=== PATIENT | female | born 1945 | race Caucasian/White ===

== ENCOUNTER 2018-03-23 21:09 | Emergency (ER) | payer MEDICARE ==
[~2018-03-23 21:09] MED LIST: Iopamidol 370 76% 100 ML VIAL ONE
[2018-03-23] MEDS ORDERED: Fentanyl 100 MCG/2 ML VIAL ONE ×2 (21:45→22:43)
[2018-03-23] MEDS ORDERED: Ondansetron HCl/PF 4 MG/2 ML Vial ONE (21:45)
[2018-03-23] MEDS ORDERED: Famotidine In NaCl 20 mg/50 ml Premix Bag ONE (21:45)
[2018-03-23 22:04] LABS: Hemoglobin 16.9 g/dL (12.0-16.0); Mean Corpuscular HGB CONC 32.8 g/dL (32.0-36.0); Mean Corpuscular Volume 88.4 fL (78.0-98.0); Mean Platelet Volume 8.2 fL (7.4-10.4); Platelet Count 372 thou/uL (130-400); Red Blood Cell (RBC) Count 5.84 mill/uL (4.20-5.40); White Blood Cell (WBC) Count 9.7 thou/uL (4.8-10.8)
[2018-03-23 22:13] LABS: ALT (SGPT) 27 U/L (8-55); AST (SGOT) 32 U/L (5-34); Albumin 4.1 g/dL (3.4-4.8); Alkaline Phosphatase 159 U/L (40-150); Anion Gap 19 mmol/L (10-20); BUN (Urea Nitrogen) 13 mg/dL (9.8-20.1); Bilirubin, Total Less than 0.2 mg/dL (0.2-1.2); Calc. Creatinine Clearance 0 mL/min (70-130); Calcium 9.6 mg/dL (7.8-10.44); Carbon Dioxide 21 mmol/L (23-31); Chloride 100 mmol/L (98-107); Estimated GFR-MDRD 62; Globulin 3.3 g/dL (2.4-3.5); Glucose 167 mg/dL (83-110); Lipase 20 U/L (8-78); Potassium 3.6 mmol/L (3.5-5.1); Protein, Total 7.4 g/dL (6.0-8.3); Sodium 136 mmol/L (136-145)
[2018-03-23 22:24] LABS: Band 1 % (5-11); Lymphocytes 11 % (21-51); MDiff Complete? YES; Monocytes 2 % (0-10); Neutrophil 84 % (42-75); PLT Morphology Comment Appears Adequate; RBC Morphology Normal; Reactive Lymphocytes 2 % (0-10)
[2018-03-24] MEDS ORDERED: Lidocaine Viscous Sol 2% 15 ml UD Cup ONE (00:09)
[2018-03-24 00:12] LABS: Clarity Clear (Clear)
[2018-03-24 00:14] LABS: Bilirubin Small (Negative); Blood, Urine Negative (Negative); Glucose, Urine (Dipstick) Negative (Negative); Leukocyte Negative (Negative); Nitrite Negative (Negative); Protein, Urine (Dipstick) Negative (Neg-Trace); Specific Gravity, Urine 1.005 (1.002-1.036)
[2018-03-24] MEDS ORDERED: Piperacillin/Tazobactam 3.375 GM VIAL ONE (00:30)
[2018-03-24] MEDS ORDERED: Morphine 4 MG/ML Carpuject ONE (00:40)
--- NOTE | 2018-03-24 09:13 | CT ---
PRELIMINARY REPORT/[facility]/EMERGENTY AFTER-HOURS PROCEDURE CT Abdomen and Pelvis With Intravenous Contrast CLINICAL HISTORY: 73 years old, female; Pain and signs and symptoms; Vomiting; Abdominal pain; Localized; Left lower qu adrant (llq); Patient HX: Onset vomiting pain llq TECHNIQUE: Axial computed tomography images of the abdomen and pelvis with intravenous contrast. All CT scans at this facility use at least one of these dose optimization techniques: automated exposure control; mA and/or kV adjustment per patient size (includes targeted exams where dose is matched to clinical indication); or iterative reconstruction. CONTRAST: 95 mL of ISOVIEW 370 administered intravenously. COMPARISON: No relevant prior studies available. FINDINGS: Lung bases: Minimal bibasilar atelectasis and/or scarring. Mediastinum: Small-sized hiatal hernia. ABDOMEN: Liver: Normal. Gallbladder and bile ducts: Normal. Pancreas: Normal. Spleen: Normal. Adrenals: Normal. Kidneys and ureters: Normal. Stomach and bowel: Extensive wall thickening of the distal transverse colon and entire descending and sigmoid colon, with adjacent associated inflammatory stranding and fluid, likely infectious/inflamma tory colitis. Ischemic colitis consider less likely given the different vascular distributions affected, although is not excluded. PELVIS: Appendix: Appendix is normal. Bladder: Normal. Reproductive: Uterus is surgically absent. ABDOMEN and PELVIS: Intraperitoneal space: Normal. No free air. No significant fluid collection. Bones/joints: Multilevel thoracolumbar spine degenerative changes. No acute fracture. No dislocation. Soft tissues: Normal. Vasculature: Multiple phleboliths within the pelvis. No abdominal aortic aneurysm. Lymph nodes: Normal. IMPRESSION: 1. Extensive wall thickening of the distal transverse colon and entire descending and sigmoid colon, with adjacent associated inflammatory stranding and fluid, likely infectious/inflammatory colitis. Ischemic colitis consider less likely given the different vascular distributions affected, although i s not excluded. 2. Incidental/non-acute findings are described above. Thank you for allowing us to participate in the care of your patient. Dictated and Authenticated by: J Luis Cruz MD 03/23/2018 11:36 PM Central Time ([place] & [place]) FINAL REPORT CT ABDOMEN AND PELVIS WITH CONTRAST: DATE: 03/23/18. FINDINGS: Spiral CT of the abdomen and pelvis was performed for evaluation of upper abdominal pain. Axial slic es were acquired after giving IV contrast. Oral contrast was withheld by request. Coronal and sagi ttal reconstructions were subsequently done. A major finding on this study is severe thickening of the colonic wall beginning in the mid to distal transverse colon, extending down the entire descending colon and into the sigmoid colon. The rectum itself appears less affected. There is not only wall thickening, but there is inflammatory change an d fluid around the affected areas: particularly in the left paracolic gutter. The findings suggest a severe colitis which could be infectious, inflammatory, or ischemic etiologies. This is basically i n the distribution of the inferior mesenteric artery; however, the CHAGO does fill as it leaves the low er abdominal aorta. The lung bases show some areas of streaky atelectasis. A small hiatal hernia was noted. The liver, s pleen, and pancreas show no acute findings. The patient's gallbladder is rather distended, but no wa ll thickening or stones were appreciated. The adrenal glands and kidneys appear normal. The abdomin al aorta has scant calcification in and shows no aneurysm. All mesenteric arteries fill. CT of the pelvis is mainly remarkable for the inflammatory changes of bowel. No additional pelvic fi ndings of concern were seen. Degenerative changes are present throughout the spine. IMPRESSION: 1. Severe colitis extending from the distal transverse colon through the sigmoid colon. Infectious, inflammatory, and ischemic etiologies are considered. 2. Moderate distention of the gallbladder without any other findings of cholecystitis or stones. Report in agreement with preliminary reading by [employer] POS: HOME
== END 2018-03-24 00:56 | disposition short-term general hospital (02) ==
LOC: BURERS 21:09
DX: R10.9 Unspecified abdominal pain (principal); E78.5 Hyperlipidemia, unspecified; I10 Essential (primary) hypertension; F41.9 Anxiety disorder, unspecified; Z79.899 Other long term (current) drug therapy
CPT/HCPCS: 51702; 74177; 80053; 81003; 83605; 83690; 85025; 96361; 96365; 96367; 96375; 96376; A4216; J2270; J2405; J2543; J3010

== ENCOUNTER 2018-04-08 16:40 | Inpatient (IN) | payer MEDICARE ==
[2018-04-08] MEDS ORDERED: Acetaminophen 500 MG TAB PO SCH (18:00)
[2018-04-08] MEDS: Atorvastatin Calcium 10 MG TAB PO SCH (21:45)
[2018-04-08] MEDS: Amitriptyline HCl 25 MG TAB PO SCH (21:48)
[2018-04-09 05:42] LABS: #Basophils 0.1 thou/uL (0.0-0.2); #Eosinphils 0.1 thou/uL (0.0-0.7); #Lymphocytes 1.1 thou/uL (1.20-3.40); #Monocytes 0.8 thou/uL (0.11-0.59); #Neutrophils 6.4 thou/uL (1.40-6.50); %Basophils 1.1 % (0.0-1.0); %Eosinophils 1.6 % (0.0-10.0); %Lymphocytes 13.4 % (21.0-51.0); %Monocytes 9.2 % (0.0-10.0); %Neutrophils 74.7 % (42.0-75.0); Hemoglobin 8.7 g/dL (12.0-16.0); Mean Corpuscular Hemoglobin 29.2 pg (27.0-31.0); Mean Corpuscular Volume 88.4 fL (78.0-98.0); Platelet Count 557 thou/uL (130-400); RBC Distribution Width 13.7 % (11.5-14.5); Red Blood Cell (RBC) Count 2.99 mill/uL (4.20-5.40); White Blood Cell (WBC) Count 8.5 thou/uL (4.8-10.8)
[2018-04-09 05:54] LABS: ALT (SGPT) 45 U/L (8-55); AST (SGOT) 24 U/L (5-34); Alkaline Phosphatase 76 U/L (40-150); Anion Gap 12 mmol/L (10-20); BUN (Urea Nitrogen) 6 mg/dL (9.8-20.1); Bilirubin, Total 0.8 mg/dL (0.2-1.2); Calc. Creatinine Clearance 0 mL/min (70-130); Calcium 8.8 mg/dL (7.8-10.44); Carbon Dioxide 26 mmol/L (23-31); Chloride 102 mmol/L (98-107); Estimated GFR-MDRD Greater than 90; Globulin 2.6 g/dL (2.4-3.5); Glucose 96 mg/dL (83-110); Potassium 3.8 mmol/L (3.5-5.1); Protein, Total 5.6 g/dL (6.0-8.3); Sodium 136 mmol/L (136-145)
[2018-04-09] MEDS: Ibuprofen 200 MG TAB PO PRN ×2 (06:04→21:18)
[2018-04-09] MEDS: Lisinopril 20 MG TAB PO SCH (10:10)
[2018-04-09] MEDS: Fluconazole 100 MG TAB PO SCH (10:11)
[2018-04-09] MEDS: Ferrous Sulfate 325 MG TAB PO SCH ×2 (10:11→18:26)
[2018-04-09] MEDS: Polyethylene Glycol 3350 17 GM Packet PO SCH (10:12)
[2018-04-09] MEDS: Atorvastatin Calcium 10 MG TAB PO SCH (21:18)
[2018-04-09] MEDS: Amitriptyline HCl 25 MG TAB PO SCH (21:18)
[2018-04-10] MEDS: Ibuprofen 200 MG TAB PO PRN (05:17)
[2018-04-10] MEDS: Lisinopril 20 MG TAB PO SCH (09:17)
[2018-04-10] MEDS: Polyethylene Glycol 3350 17 GM Packet PO SCH (09:17)
[2018-04-10] MEDS: Ferrous Sulfate 325 MG TAB PO SCH ×2 (09:18→18:06)
[2018-04-10] MEDS: Fluconazole 100 MG TAB PO SCH (09:18)
[2018-04-10] MEDS: Amitriptyline HCl 25 MG TAB PO SCH (20:46)
[2018-04-10] MEDS: Atorvastatin Calcium 10 MG TAB PO SCH (20:46)
[2018-04-11] MEDS: Ibuprofen 200 MG TAB PO PRN ×2 (00:06→20:48)
[2018-04-11] MEDS: Lisinopril 20 MG TAB PO SCH (09:33)
[2018-04-11] MEDS: Polyethylene Glycol 3350 17 GM Packet PO SCH (09:33)
[2018-04-11] MEDS: Fluconazole 100 MG TAB PO SCH (09:33)
[2018-04-11] MEDS: Ferrous Sulfate 325 MG TAB PO SCH ×2 (09:33→17:32)
[2018-04-11] MEDS: traMADol HCl 50 MG TAB PO PRN (13:54)
[2018-04-11] MEDS: Amitriptyline HCl 25 MG TAB PO SCH (20:41)
[2018-04-11] MEDS: Atorvastatin Calcium 10 MG TAB PO SCH (20:41)
[2018-04-12] MEDS: Ferrous Sulfate 325 MG TAB PO SCH ×2 (08:56→17:27)
[2018-04-12] MEDS: Polyethylene Glycol 3350 17 GM Packet PO SCH (08:56)
[2018-04-12] MEDS: Lisinopril 20 MG TAB PO SCH (08:57)
[2018-04-12] MEDS: Fluconazole 100 MG TAB PO SCH (08:57)
[2018-04-12] MEDS: Atorvastatin Calcium 10 MG TAB PO SCH (20:26)
[2018-04-12] MEDS: Ibuprofen 200 MG TAB PO PRN (20:26)
[2018-04-12] MEDS: Amitriptyline HCl 25 MG TAB PO SCH (20:26)
[2018-04-13] MEDS: Ibuprofen 200 MG TAB PO PRN ×2 (05:35→20:24)
[2018-04-13] MEDS: traMADol HCl 50 MG TAB PO PRN (09:25)
[2018-04-13] MEDS: Lisinopril 20 MG TAB PO SCH (09:26)
[2018-04-13] MEDS: Fluconazole 100 MG TAB PO SCH (09:27)
[2018-04-13] MEDS: Polyethylene Glycol 3350 17 GM Packet PO SCH (09:27)
[2018-04-13] MEDS: Ferrous Sulfate 325 MG TAB PO SCH ×2 (12:42→17:37)
[2018-04-13] MEDS: Amitriptyline HCl 25 MG TAB PO SCH (20:23)
[2018-04-13] MEDS: Atorvastatin Calcium 10 MG TAB PO SCH (20:23)
[2018-04-14] MEDS: Polyethylene Glycol 3350 17 GM Packet PO SCH (09:38)
[2018-04-14] MEDS: Ferrous Sulfate 325 MG TAB PO SCH ×2 (09:38→18:45)
[2018-04-14] MEDS: Lisinopril 20 MG TAB PO SCH (09:38)
[2018-04-14] MEDS: Fluconazole 100 MG TAB PO SCH (09:38)
[2018-04-14] MEDS: Ibuprofen 200 MG TAB PO PRN ×2 (09:44→21:16)
[2018-04-14] MEDS: Atorvastatin Calcium 10 MG TAB PO SCH (21:04)
[2018-04-14] MEDS: Amitriptyline HCl 25 MG TAB PO SCH (21:04)
[2018-04-15] MEDS: Polyethylene Glycol 3350 17 GM Packet PO SCH (09:45)
[2018-04-15] MEDS: Fluconazole 100 MG TAB PO SCH (09:46)
[2018-04-15] MEDS: Lisinopril 20 MG TAB PO SCH (09:46)
[2018-04-15] MEDS: Ferrous Sulfate 325 MG TAB PO SCH ×2 (09:47→18:51)
[2018-04-15] MEDS: traMADol HCl 50 MG TAB PO PRN (09:57)
[2018-04-15] MEDS: Atorvastatin Calcium 10 MG TAB PO SCH (21:40)
[2018-04-15] MEDS: Amitriptyline HCl 25 MG TAB PO SCH (21:40)
[2018-04-16] MEDS: Polyethylene Glycol 3350 17 GM Packet PO SCH (08:44)
[2018-04-16] MEDS: Lisinopril 20 MG TAB PO SCH (08:45)
[2018-04-16] MEDS: Ferrous Sulfate 325 MG TAB PO SCH ×2 (08:45→17:38)
[2018-04-16] MEDS: Fluconazole 100 MG TAB PO SCH (08:46)
[2018-04-16] MEDS: Amitriptyline HCl 25 MG TAB PO SCH (20:43)
[2018-04-16] MEDS: Atorvastatin Calcium 10 MG TAB PO SCH (20:43)
[2018-04-17] MEDS: Ferrous Sulfate 325 MG TAB PO SCH (08:40)
[2018-04-17] MEDS: Lisinopril 20 MG TAB PO SCH (08:40)
[2018-04-17] MEDS: Polyethylene Glycol 3350 17 GM Packet PO SCH (08:41)
[2018-04-17 11:24] LABS: #Basophils 0.1 thou/uL (0.0-0.2); #Eosinphils 0.4 thou/uL (0.0-0.7); #Lymphocytes 0.9 thou/uL (1.20-3.40); #Monocytes 0.4 thou/uL (0.11-0.59); #Neutrophils 2.4 thou/uL (1.40-6.50); %Basophils 1.6 % (0.0-1.0); %Eosinophils 9.6 % (0.0-10.0); %Lymphocytes 20.5 % (21.0-51.0); %Monocytes 10.3 % (0.0-10.0); Eosinophils 11 % (0-10); Hemoglobin 9.7 g/dL (12.0-16.0); Lymphocytes 31 % (21-51); MDiff Complete? YES; Mean Corpuscular HGB CONC 31.9 g/dL (32.0-36.0); Mean Corpuscular Hemoglobin 27.2 pg (27.0-31.0); Mean Corpuscular Volume 85.4 fL (78.0-98.0); Mean Platelet Volume 6.6 fL (7.4-10.4); Monocytes 5 % (0-10); Neutrophil 53 % (42-75); Platelet Count 644 thou/uL (130-400); RBC Distribution Width 14.1 % (11.5-14.5); Red Blood Cell (RBC) Count 3.57 mill/uL (4.20-5.40); Small Platelets SLIGHT; White Blood Cell (WBC) Count 4.2 thou/uL (4.8-10.8)
[2018-04-17] MEDS: Amitriptyline HCl 25 MG TAB PO SCH (21:04)
[2018-04-17] MEDS: Atorvastatin Calcium 10 MG TAB PO SCH (21:04)
[2018-04-18] MEDS: Ondansetron ODT 4 MG TAB PO PRN (09:07)
[2018-04-18] MEDS: Polyethylene Glycol 3350 17 GM Packet PO SCH (10:36)
[2018-04-18] MEDS: Ferrous Sulfate 325 MG TAB PO SCH (10:38)
[2018-04-18] MEDS: Lisinopril 20 MG TAB PO SCH (10:38)
[2018-04-18] MEDS: traMADol HCl 50 MG TAB PO PRN (14:27)
[2018-04-18] MEDS: Atorvastatin Calcium 10 MG TAB PO SCH (20:21)
[2018-04-18] MEDS: Amitriptyline HCl 25 MG TAB PO SCH (20:21)
[2018-04-18] MEDS: MEXILETINE 150 MG PO SCH (20:23)
[2018-04-19] MEDS: Ferrous Sulfate 325 MG TAB PO SCH (09:20)
[2018-04-19] MEDS: Lisinopril 20 MG TAB PO SCH (09:20)
[2018-04-19] MEDS: Polyethylene Glycol 3350 17 GM Packet PO SCH (09:20)
[2018-04-19] MEDS: MEXILETINE 150 MG PO SCH ×2 (09:21→20:47)
[2018-04-19] MEDS: Amitriptyline HCl 25 MG TAB PO SCH (20:43)
[2018-04-19] MEDS: Atorvastatin Calcium 10 MG TAB PO SCH (20:43)
[2018-04-20] MEDS: Ferrous Sulfate 325 MG TAB PO SCH (09:12)
[2018-04-20] MEDS: Polyethylene Glycol 3350 17 GM Packet PO SCH (09:12)
[2018-04-20] MEDS: Lisinopril 20 MG TAB PO SCH (09:12)
[2018-04-20] MEDS: MEXILETINE 150 MG PO SCH ×2 (09:14→20:21)
[2018-04-20] MEDS: traMADol HCl 50 MG TAB PO PRN (10:10)
[2018-04-20 15:46] VITALS: BMI 27.6
[2018-04-20] MEDS: Amitriptyline HCl 25 MG TAB PO SCH (20:20)
[2018-04-20] MEDS: Atorvastatin Calcium 10 MG TAB PO SCH (20:21)
[2018-04-20] MEDS: Ibuprofen 200 MG TAB PO PRN (20:23)
[2018-04-21] MEDS: Polyethylene Glycol 3350 17 GM Packet PO SCH (08:32)
[2018-04-21] MEDS: Ferrous Sulfate 325 MG TAB PO SCH (08:32)
[2018-04-21] MEDS: Lisinopril 20 MG TAB PO SCH (08:33)
[2018-04-21] MEDS: MEXILETINE 150 MG PO SCH ×2 (08:38→20:17)
[2018-04-21] MEDS: Ibuprofen 200 MG TAB PO PRN (20:16)
[2018-04-21] MEDS: Atorvastatin Calcium 10 MG TAB PO SCH (20:16)
[2018-04-21] MEDS: Amitriptyline HCl 25 MG TAB PO SCH (20:16)
[2018-04-22] MEDS: Ferrous Sulfate 325 MG TAB PO SCH (08:16)
[2018-04-22] MEDS: Lisinopril 20 MG TAB PO SCH (09:19)
[2018-04-22] MEDS: Polyethylene Glycol 3350 17 GM Packet PO SCH (09:22)
[2018-04-22] MEDS: MEXILETINE 150 MG PO SCH ×2 (09:27→20:37)
[2018-04-22] MEDS: traMADol HCl 50 MG TAB PO PRN (09:48)
[2018-04-22] MEDS: Atorvastatin Calcium 10 MG TAB PO SCH (20:33)
[2018-04-22] MEDS: Ibuprofen 200 MG TAB PO PRN (20:34)
[2018-04-22] MEDS: Amitriptyline HCl 25 MG TAB PO SCH (20:34)
[2018-04-23] MEDS: Ferrous Sulfate 325 MG TAB PO SCH (08:56)
[2018-04-23] MEDS: Lisinopril 20 MG TAB PO SCH (08:56)
[2018-04-23] MEDS: Polyethylene Glycol 3350 17 GM Packet PO SCH (08:56)
[2018-04-23] MEDS: MEXILETINE 150 MG PO SCH ×2 (09:00→21:11)
[2018-04-23] MEDS: Amitriptyline HCl 25 MG TAB PO SCH (21:11)
[2018-04-23] MEDS: Atorvastatin Calcium 10 MG TAB PO SCH (21:11)
[2018-04-24] MEDS: Lisinopril 20 MG TAB PO SCH (08:37)
[2018-04-24] MEDS: Ferrous Sulfate 325 MG TAB PO SCH (08:37)
[2018-04-24] MEDS: MEXILETINE 150 MG PO SCH ×2 (08:39→20:05)
[2018-04-24] MEDS: Polyethylene Glycol 3350 17 GM Packet PO SCH (08:39)
[2018-04-24] MEDS: Atorvastatin Calcium 10 MG TAB PO SCH (20:05)
[2018-04-24] MEDS: Amitriptyline HCl 25 MG TAB PO SCH (20:06)
[2018-04-25] MEDS: Ondansetron ODT 4 MG TAB PO PRN (00:19)
[2018-04-25] MEDS: Ferrous Sulfate 325 MG TAB PO SCH (09:26)
[2018-04-25] MEDS: Lisinopril 20 MG TAB PO SCH (09:27)
[2018-04-25] MEDS: MEXILETINE 150 MG PO SCH ×2 (09:28→20:09)
[2018-04-25] MEDS: Polyethylene Glycol 3350 17 GM Packet PO SCH (10:23)
[2018-04-25] MEDS: Ibuprofen 200 MG TAB PO PRN ×2 (13:48→20:32)
[2018-04-25] MEDS: Atorvastatin Calcium 10 MG TAB PO SCH (20:11)
[2018-04-25] MEDS: Amitriptyline HCl 25 MG TAB PO SCH (20:11)
[2018-04-26] MEDS: Polyethylene Glycol 3350 17 GM Packet PO SCH (08:26)
[2018-04-26] MEDS: Lisinopril 20 MG TAB PO SCH (08:26)
[2018-04-26] MEDS: Ferrous Sulfate 325 MG TAB PO SCH (08:26)
[2018-04-26] MEDS: MEXILETINE 150 MG PO SCH ×2 (08:28→20:14)
[2018-04-26] MEDS: Amitriptyline HCl 25 MG TAB PO SCH (20:09)
[2018-04-26] MEDS: Atorvastatin Calcium 10 MG TAB PO SCH (20:10)
[2018-04-27] MEDS: Lisinopril 20 MG TAB PO SCH (08:45)
[2018-04-27] MEDS: Ferrous Sulfate 325 MG TAB PO SCH (08:46)
[2018-04-27] MEDS: Polyethylene Glycol 3350 17 GM Packet PO SCH (08:46)
[2018-04-27] MEDS: MEXILETINE 150 MG PO SCH ×2 (08:48→21:29)
[2018-04-27] MEDS ORDERED: traMADol HCl 50 MG TAB PO PRN (09:49)
[2018-04-27] MEDS: Atorvastatin Calcium 10 MG TAB PO SCH (21:24)
[2018-04-27] MEDS: Amitriptyline HCl 25 MG TAB PO SCH (21:24)
[2018-04-27] MEDS: Ibuprofen 200 MG TAB PO PRN (21:25)
[2018-04-28] MEDS ORDERED: Famotidine In NaCl 20 mg/50 ml Premix Bag ONE (08:04)
[2018-04-28] MEDS: Lisinopril 20 MG TAB PO SCH (08:18)
[2018-04-28] MEDS: MEXILETINE 150 MG PO SCH ×2 (08:18→21:13)
[2018-04-28] MEDS: Ferrous Sulfate 325 MG TAB PO SCH (08:18)
[2018-04-28] MEDS: Triple Antibiotic Oint 1 GM Packet TOP SCH (08:19)
[2018-04-28] MEDS: Polyethylene Glycol 3350 17 GM Packet PO SCH (08:20)
[2018-04-28] MEDS: Ibuprofen 200 MG TAB PO PRN (21:13)
[2018-04-28] MEDS: Atorvastatin Calcium 10 MG TAB PO SCH (21:13)
[2018-04-28] MEDS: Amitriptyline HCl 25 MG TAB PO SCH (21:13)
[2018-04-29] MEDS: Ferrous Sulfate 325 MG TAB PO SCH (08:36)
[2018-04-29] MEDS: MEXILETINE 150 MG PO SCH ×2 (08:36→20:19)
[2018-04-29] MEDS: Polyethylene Glycol 3350 17 GM Packet PO SCH (08:36)
[2018-04-29] MEDS: Lisinopril 20 MG TAB PO SCH (08:36)
[2018-04-29] MEDS: Triple Antibiotic Oint 1 GM Packet TOP SCH (11:40)
[2018-04-29] MEDS: Amitriptyline HCl 25 MG TAB PO SCH (20:19)
[2018-04-29] MEDS: Atorvastatin Calcium 10 MG TAB PO SCH (20:19)
[2018-04-29] MEDS: Ibuprofen 200 MG TAB PO PRN (20:28)
[2018-04-30] MEDS: Lisinopril 20 MG TAB PO SCH (08:52)
[2018-04-30] MEDS: Polyethylene Glycol 3350 17 GM Packet PO SCH (08:54)
[2018-04-30] MEDS: Ferrous Sulfate 325 MG TAB PO SCH (08:54)
[2018-04-30] MEDS: Triple Antibiotic Oint 1 GM Packet TOP SCH (08:58)
[2018-04-30] MEDS: MEXILETINE 150 MG PO SCH ×2 (08:58→21:47)
[2018-04-30] MEDS: Atorvastatin Calcium 10 MG TAB PO SCH (21:48)
[2018-04-30] MEDS: Ibuprofen 200 MG TAB PO PRN (21:48)
[2018-04-30] MEDS: Amitriptyline HCl 25 MG TAB PO SCH (21:48)
[2018-05-01] MEDS: Polyethylene Glycol 3350 17 GM Packet PO SCH (08:20)
[2018-05-01] MEDS: MEXILETINE 150 MG PO SCH ×2 (08:21→22:10)
[2018-05-01] MEDS: Ferrous Sulfate 325 MG TAB PO SCH (08:22)
[2018-05-01] MEDS: Triple Antibiotic Oint 1 GM Packet TOP SCH (08:22)
[2018-05-01] MEDS: Lisinopril 20 MG TAB PO SCH (08:23)
[2018-05-01] MEDS: Atorvastatin Calcium 10 MG TAB PO SCH (22:10)
[2018-05-01] MEDS: Ibuprofen 200 MG TAB PO PRN (22:10)
[2018-05-01] MEDS: Amitriptyline HCl 25 MG TAB PO SCH (22:11)
[2018-05-02 04:53] LABS: #Basophils 0.1 thou/uL (0.0-0.2); #Eosinphils 0.2 thou/uL (0.0-0.7); #Lymphocytes 1.4 thou/uL (1.20-3.40); #Monocytes 0.5 thou/uL (0.11-0.59); #Neutrophils 3.7 thou/uL (1.40-6.50); %Basophils 2.4 % (0.0-1.0); %Eosinophils 3.4 % (0.0-10.0); %Lymphocytes 23.8 % (21.0-51.0); %Monocytes 8.1 % (0.0-10.0); %Neutrophils 62.3 % (42.0-75.0); Hemoglobin 10.2 g/dL (12.0-16.0); Mean Corpuscular HGB CONC 33.2 g/dL (32.0-36.0); Mean Corpuscular Hemoglobin 26.6 pg (27.0-31.0); Mean Corpuscular Volume 80.2 fL (78.0-98.0); Mean Platelet Volume 6.7 fL (7.4-10.4); Platelet Count 463 thou/uL (130-400); RBC Distribution Width 14.7 % (11.5-14.5); Red Blood Cell (RBC) Count 3.82 mill/uL (4.20-5.40); White Blood Cell (WBC) Count 5.9 thou/uL (4.8-10.8)
[2018-05-02 05:11] LABS: ALT (SGPT) 17 U/L (8-55); AST (SGOT) 21 U/L (5-34); Albumin 3.2 g/dL (3.4-4.8); Alkaline Phosphatase 97 U/L (40-150); Anion Gap 12 mmol/L (10-20); BUN (Urea Nitrogen) Less than 4 mg/dL (9.8-20.1); Bilirubin, Total 0.4 mg/dL (0.2-1.2); Calc. Creatinine Clearance 73 mL/min (70-130); Carbon Dioxide 24 mmol/L (23-31); Chloride 107 mmol/L (98-107); Estimated GFR-MDRD 71; Globulin 2.8 g/dL (2.4-3.5); Glucose 86 mg/dL (83-110); Potassium 3.6 mmol/L (3.5-5.1); Sodium 139 mmol/L (136-145)
[2018-05-02 06:22] VITALS: TEMP 98.3
[2018-05-02] MEDS: Polyethylene Glycol 3350 17 GM Packet PO SCH (08:43)
[2018-05-02] MEDS: Ferrous Sulfate 325 MG TAB PO SCH (08:43)
[2018-05-02] MEDS: Lisinopril 20 MG TAB PO SCH (08:44)
[2018-05-02] MEDS: MEXILETINE 150 MG PO SCH (08:44)
[2018-05-02 08:51] VITALS: BP 165/74
[2018-05-02] MEDS: Triple Antibiotic Oint 1 GM Packet TOP SCH (08:51)
--- NOTE | 2018-05-02 08:51 | DIS ---
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 SECONDARY DIAGNOSES: Depression, dyslipidemia, and hypertension. PROCEDURES: Routine wound VAC changes on Mondays, Wednesdays, and Fridays until ultimate discontinuation of the wound VAC. HOSPITAL COURSE: This is a 73-year-old female, who presented to our facility to participate with physical therapy, occupational therapy and wound care, status post admission at [facility] in [place], where she was treated for sepsis related to an acute infarction of her large intestine ; this resulted in colectomy and placement of colostomy; in addition to this, the patient had a wound VAC placed to the central abdomen. The patient's stay was complicated by development of ARDS, for which Pulmonary Care was consulted. She was treated with antibiotics during her stay and transitioned to our facility to finish an oral course of fluconazole due to bronchial washings being positive for yeast. The patient had been started on iron supplementation secondary to anemia due to blood loss as well. Upon presentation here, hemoglobin was 8.7; this improved upon followup evaluation to a level of 9.7 and ultimately 10.2. The patient will continue iron supplementation over the next month upon which a followup CBC may be obtained. The patient satisfactorily completed her course of oral fluconazole. The patient was able to work with physical therapy and occupational therapy. She notably became short of breath early during her stay, when exertional, for which she required supplemental oxygen. This gradually improved to where the patient no longer has required supplemental oxygen. She regularly received wound care with scheduled wound VAC changes on Mondays, Wednesdays, and Fridays. She was able to follow up with Dr. Lewis during her stay, and the wound VAC has been discontinued. The patient received ostomy training, and is now comfortable with maintenance of this issue in her home setting. The plan is for the patient to have a reversal with reanastomosis in approximately [address] Lewis. The patient has steadily improved in her strength and conditioning to satisfactorily be able to discharge to her home setting at this time. She has elected to proceed with outpatient physical therapy for continuation of treatment for her physical deconditioning. DISPOSITION: The patient will be discharged to her home where she lives with her . She may follow up with her PCP, Dr. Padmini Gonzalez, or myself in 1 week. She will further have a followup with Dr. Lewis in approximately 6 weeks. She will have continued physical therapy as an outpatient at [facility]. DISCHARGE MEDICATIONS: Amitriptyline 25 mg p.o. at bedtime, atorvastatin 20 mg p.o. at bedtime, ferrous sulfate 325 mg p.o. daily, ibuprofen 400 mg p.o. q.8 hours p.r.n., lisinopril 20 mg p.o. daily, pantoprazole 40 mg p.o. daily, MiraLax 17 grams p.o. daily p.r.n. MTDD
== END 2018-05-02 13:00 | disposition home or self-care (01) | DRG 177 ==
LOC: BURMED 16:40
PROVIDERS: ADMIT Family Medicine; ATTEND Family Medicine
DX: B37.1 Pulmonary candidiasis (principal); K55.049 Acute infarction of large intestine, extent unspecified; E78.5 Hyperlipidemia, unspecified; I10 Essential (primary) hypertension; Z90.49 Acquired absence of other specified parts of digestive tract; D50.0 Iron deficiency anemia secondary to blood loss (chronic); F32.9 Major depressive disorder, single episode, unspecified; R09.02 Hypoxemia; Z93.3 Colostomy status; F41.9 Anxiety disorder, unspecified; Z09 Encounter for follow-up examination after completed treatment for conditions other than malignant neoplasm
CPT/HCPCS: 36415; 80053; 85025; G8978-GP-CL; G8979-GP-CI; G8987-GO-CK; G8988-GO-CI; G8990-GP-CH; G8991-GP-CH; Q0162

== ENCOUNTER 2021-02-03 09:37 | Outpatient (CLI) | payer MEDICARE | END 2021-02-03 09:38 | disposition home or self-care (01) | LOC: BURCT 09:37 | PROVIDERS: ATTEND Neurological Surgery | DX: M54.2 Cervicalgia (principal); M43.22 Fusion of spine, cervical region | CPT/HCPCS: 72125 ==

== ENCOUNTER 2024-05-29 08:48 | Outpatient (CLI) | payer MEDICARE | END 2024-05-29 08:49 | disposition home or self-care (01) | LOC: BURRAD 08:48 | PROVIDERS: ATTEND Physician Assistant | DX: M47.22 Other spondylosis with radiculopathy, cervical region (principal); Z98.1 Arthrodesis status | CPT/HCPCS: 72050 ==